=== PATIENT | female | born 1980 | race Caucasian/White ===

== ENCOUNTER → 2024-11-08 16:58 | Outpatient (REF) | payer OTHER, SELFPAY | LOC: RAD 16:58 | PROVIDERS: ATTENDING PHYSICIAN Student in an Organized Health Care Education/Training Program | DX: M25.571 Pain in right ankle and joints of right foot (principal) | CPT/HCPCS: 73610 ==

== ENCOUNTER → 2025-03-21 09:38 | Outpatient (REF) | payer OTHER, SELFPAY | LOC: HWWDC 09:38 | PROVIDERS: ATTENDING PHYSICIAN Student in an Organized Health Care Education/Training Program | DX: Z12.31 Encounter for screening mammogram for malignant neoplasm of breast (principal) | CPT/HCPCS: 77063; 77067 ==

== ENCOUNTER → 2025-07-02 14:06 | Outpatient (REF) | payer OTHER, SELFPAY | LOC: WDC 14:06 | PROVIDERS: ATTENDING PHYSICIAN Student in an Organized Health Care Education/Training Program | DX: R92.8 Other abnormal and inconclusive findings on diagnostic imaging of breast (principal); N63.21 Unspecified lump in the left breast, upper outer quadrant | CPT/HCPCS: 76642 ==